=== PATIENT | male | born 1960 | race African-American/Black ===

== ENCOUNTER 2017-05-12 17:54 | Emergency (ER) | payer BC, SELFPAY ==
[2017-05-12 18:11] VITALS: BP 163/82; PULSE 83; RESP 16; TEMP 36.9; O2SAT 98; BMI 33.6
[2017-05-12 18:12] LABS: UTC Influenza A Antigen Negative (Negative); UTC Influenza B Antigen Positive (Negative)
--- NOTE | 2017-05-12 18:20 | HMH.EDUTC ---
[facility] [place] Dis[place] Clinical Impression: Influenza Disposition: Home, Self-Care Condition on Discharge: Good Instructions: Influenza, DI for Cough -- Adult Additional Instructions: ? Start Tamiflu today if you are going to take it. Discussed risk and possible benefits. ? Lots of rest ? Increase Fluids water, Gatorade, powerade, pedialyte,if /toddler/child ? Alternate Tylenol and / or ibuprofen as discussed for fever, aches, chills x 24 hours without medication for symptoms ? Follow up IMMEDIATELY for new or worsening Symptoms OR no noticeable improvement over the next 48-72 hours, 911 for difficulty or breathing ? You or your child area contagious until no fever, aches, chills for 24 hours with medication for symptoms Prescriptions: Dextromethorphan Polistirex [Delsym] 10 ml PO Q12H PRN #200 ronal.er.12h PRN Reason: Cough Oseltamivir Phosphate [Tamiflu 75mg Capsule] 75 mg PO BID #10 cap Forms: Work/School Release Time of Disposition: 18:28 Medical Decision Making - Medical Records Medical records reviewed: Yes: I reviewed the patient's medical records. Vital Signs: 05/12/17 18:11 Temperature 98.5 F Temperature Source Temporal Artery Scan Pulse Rate [Right] 83 Respiratory Rate 16 Blood Pressure [Right Arm] 163/82 Blood Pressure Mean [Right Arm] 109 Blood Pressure Source [Right Arm] Automatic Cuff Blood Pressure Position [Right Arm] Sitting 02 Sat by Pulse Oximetry 98 Oxygen Delivery Method Room Air - Lab Data Lab Results 05/12/17 17:57: Influenza Type A Ag Negative, Influenza Type B Ag Positive A - Emeka Inquiry Pt receiving controlled substance: No Emeka was queried for this patient: No [facility] HPI - General Stated complaint: Fever, Congestion, Body Aches Mode of Arrival: Ambulatory Source of Information: Patient Limitations: No Limitations Description of Symptoms (Recalled from Triage Doc. 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 History I have reviewed the patient's past medical history: Yes - *Social History Alcohol Intake: never - Psychiatric History Expresses thoughts of harming self/others: None Suicide Plan Description: No Plan ROS Obtained: Yes All systems reviewed & no additional complaints - Constitutional Constitutional: Reports body ache, Reports chills, Reports fever(s) - ENT Ears, Nose, Mouth, and Throat: Reports sinus pain, Reports sore throat Physical Exam - General General appearance: alert, in no apparent distress - Respiratory Respiratory exam: Present: normal lung sounds bilaterally. Absent: respiratory distress - Cardiovascular Cardiovascular exam: Present: regular rate, normal rhythm. Absent: JVD - Neurological Exam Neurological exam: Present: alert, oriented X3
--- NOTE | 2017-05-12 18:26 | ED_ITS ---
[facility] [place]: Influenza Disposition: Home, Self-Care Condition on Discharge: Good Instructions: Influenza, DI for Cough -- Adult Additional Instructions: ? Start Tamiflu today if you are going to take it. Discussed risk and possible benefits. ? Lots of rest ? Increase Fluids water, Gatorade, powerade, pedialyte,if /toddler/child ? Alternate Tylenol and / or ibuprofen as discussed for fever, aches, chills x 24 hours without medication for symptoms ? Follow up IMMEDIATELY for new or worsening Symptoms OR no noticeable improvement over the next 48-72 hours, 911 for difficulty or breathing ? You or your child area contagious until no fever, aches, chills for 24 hours with medication for symptoms Prescriptions: Dextromethorphan Polistirex [Delsym] 10 ml PO Q12H PRN #200 ronal.er.12h PRN Reason: Cough Oseltamivir Phosphate [Tamiflu 75mg Capsule] 75 mg PO BID #10 cap Forms: Work/School Release Time of Disposition: 18:28 Medical Decision Making - Medical Records Medical records reviewed: Yes: I reviewed the patient's medical records. Vital Signs: 05/12/17 18:11 Temperature 98.5 F Temperature Source Temporal Artery Scan Pulse Rate [Right] 83 Respiratory Rate 16 Blood Pressure [Right Arm] 163/82 Blood Pressure Mean [Right Arm] 109 Blood Pressure Source [Right Arm] Automatic Cuff Blood Pressure Position [Right Arm] Sitting 02 Sat by Pulse Oximetry 98 Oxygen Delivery Method Room Air - Lab Data Lab Results 05/12/17 17:57: Influenza Type A Ag Negative, Influenza Type B Ag Positive A - Emeka Inquiry Pt receiving controlled substance: No Emeka was queried for this patient: No [facility] [place] - General Stated complaint: Fever, Congestion, Body Aches Mode of Arrival: Ambulatory Source of Information: Patient Limitations: No Limitations Description of Symptoms (Recalled from Triage Doc. 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 - Related Data Previous Rx's Medication Instructions Recorded Dextromethorphan Polistirex 10 ml PO Q12H PRN #200 ronal.er.12h 05/12/17 [Delsym] Oseltamivir Phosphate [Tamiflu 75 mg PO BID #10 cap 05/12/17 75mg Capsule] Allergies Allergy/AdvReac Type Severity Reaction Status Date / Time No Known Allergies Allergy Verified 05/12/17 18:15 - Worker's Comp Is this a Worker's Comp case?: No [facility] History I have reviewed the patient's past medical history: Yes - *Social History Alcohol Intake: never - Psychiatric History Expresses thoughts of harming self/others: None Suicide Plan Description: No Plan ROS Obtained: Yes All systems reviewed & no additional complaints - Constitutional Constitutional: Rep
== END 2017-05-12 18:41 | disposition home or self-care (01) ==
PROVIDERS: Emergency Provider Nurse Practitioner
DX: J11.1 Influenza due to unidentified influenza virus with other respiratory manifestations (principal)
CPT/HCPCS: 87804; 99201

== ENCOUNTER 2021-01-03 12:22 | Emergency (ER) | payer BC, SELFPAY ==
[2021-01-03 12:30] VITALS: BP 183/100; PULSE 66; RESP 16; TEMP 36.8; O2SAT 99; BMI 34.2
--- NOTE | 2021-01-03 13:17 | HMH.EDUTC ---
[facility] [place] Clinical Impression: Low back pain Qualifiers: Chronicity: unspecified Back pain laterality: right Sciatica presence: with sciatica Sciatica laterality: sciatica of right side Qualified Code(s): M54.41 - Lumbago with sciatica, right side Disposition: Home, Self-Care Condition on Discharge: Good Instructions: DI for Sciatica, DI for Back Pain With Sciatica, Cyclobenzaprine, Etodolac Additional Instructions: *Etodolac kym 8 hours with meal as needed for pain/inflammation *Remember you had a Toradol shot in the clinic today, which is similar to Etodolac so do not start this mediacaiton until at least 10pm tonight *Not additional anti-inflammatory like Ibuprofen motrin, aleve, advil with the above amount of Etodolac. You can still take Tylenol every 4 hours as needed if you need something else for pain *Ice 20 minutes every 2 hours for the first 48 hours after the initial injury followed by moist heat every 20 minutes 3-4 times a day to affected area *Muscle relaxer every 8 hours as needed for muscle spasms but remember, it WILL cause drowsiness You cannot take it and drive, operate machinery or care for small children. *Keep this area active, no movement leads to more stiffness, However take it easy and avoid heavy lifting pushing or pulling *Follow up with you family doctor if no improvement for further treatment Make sure to watch your blood pressure and follow up with your Family Doctor for further treatment and evaluation Prescriptions: Etodolac 200 mg PO Q8HP PRN #20 cap PRN Reason: Moderate Pain Transmission Status: Pending to [id number] Cyclobenzaprine HCl [Flexeril 10mg tablet] 10 mg PO TID PRN #30 tab PRN Reason: Muscle Spasm Transmission Status: Pending to [facility] Referrals: Provider,Referral, [Primary Care Provider] - As needed Time of Disposition: 13:49 Medical Decision Making - Emeka Inquiry Pt receiving controlled substance: No Emeka was queried for this patient: No Vital Signs: 01/03/21 12:30 Temperature 98.3 F Temperature Source Oral Pulse Rate [Right Radial] 66 Respiratory Rate 16 Blood Pressure [Right Arm] 183/100 H Blood Pressure Mean [Right Arm] 127 Blood Pressure Source [Right Arm] Automatic Cuff Blood Pressure Position [Right Arm] Sitting 02 Sat by Pulse Oximetry 99 Oxygen Delivery Method Room Air Orders (Tests/Meds): ED MEDICATIONS Discontinued Medications Generic Name Dose Route Start Last Admin Trade Name Shravan PRN Reason Stop Dose Admin Ketorolac Tromethamine 60 mg 01/03/21 13:26 01/03/21 13:35 Ketorolac 60mg/2ml Vial IM 01/03/21 13:27 60 mg ONCE ONE Administration Methylprednisolone Sodium Succinate 125 mg 01/03/21 13:26 01/03/21 13:35 Methylprednisolone Sod Succ 125mg Vial IM 01/03/21 13:27 125 mg ONCE ONE Administration Medical Decision Narrative: Discussed with patient and recommended xray and patient declined States that feels like he pulled a muscle and did not want an xray Discussed with patient and recommended transfer to the ED or further lab work due to elevated blood pressure and he declined states that he is hurting and just wants to get checked for his back [facility] [place] - General Stated complaint: lower back pain right side Time Seen by Provider: 01/03/21 13:18 Mode of Arrival: Ambulatory Source of Information: Patient Limitations: No Limitations Description of Symptoms (Recalled from Triage Doc. by RN): pt c/o R sided lower back, no injury. Pt reports pain radiates down his R leg. - History of Present Illness Provider Complaint: Patient states that he was bending over a few weeks back and felt something pull on the right side of his lower back States that he took OTC medication and it got better but for the last couple of days he has been having pain again in his right side/lower back area that feels like spasm that goes into his right buttock area and right upper leg Denies Loss of control
[2021-01-03 13:37] VITALS: BP 183/90; PULSE 66; RESP 19; TEMP 36.8; O2SAT 99; BMI 26.1
[2021-01-03 14:07] VITALS: BP 183/90; PULSE 66; RESP 19; TEMP 36.8; O2SAT 99
== END 2021-01-03 14:07 | disposition home or self-care (01) ==
LOC: ER 12:33 → UTC 12:33
PROVIDERS: Emergency Provider Nurse Practitioner
DX: M54.41 Lumbago with sciatica, right side (principal)
CPT/HCPCS: 96372; 99202; G0463

== ENCOUNTER 2021-10-20 13:10 | Emergency (ER) | payer BC, SELFPAY ==
[2021-10-20] VITALS (12 sets, daily range): BP systolic 187–219; BP diastolic 96–130; PULSE 59–74; RESP 18; TEMP 37; O2SAT 95–100; BMI 30.2
--- NOTE | 2021-10-20 13:41 | CT_ITS ---
FINAL REPORT CLINICAL HISTORY: right sided weakness, pt states that the symptoms began yesterday FINDINGS: Axial images of the head were obtained without contrast. Coronal reformatted images were also obtained.This study was performed with techniques to keep radiation doses as low as reasonably achievable (ALARA). Individualized dose reduction techniques using automated exposure control or adjustment of mA and/or kV according to the patient's size were employed. There is no evidence of intracranial hemorrhage or mass. The ventricular size is within normal limits. There is no evidence of shift of the midline structures. No abnormal extra axial fluid collection is identified. No skull abnormality is seen on the bone window images. IMPRESSION: No acute intracranial abnormality. Reviewed, Interpreted and Dictated by Gatito Srivastava III, MD Transcribed by Sandip Ocampo Authenticated and [facility]
--- NOTE | 2021-10-20 13:53 | PC.NURSE ---
notified rad pt is ready for CT
[2021-10-20 13:55] LABS: POC Glucose,Bedside 155 (70-110)
--- NOTE | 2021-10-20 13:58 | HMH.EDGENADL ---
ED Disposition Clinical Impression: Cerebrovascular accident Qualifiers: CVA mechanism: unspecified Qualified Code(s): I63.9 - Cerebral infarction, unspecified Disposition: Xfer Short-Term Hosp Condition on Discharge: Fair Referrals: Provider,Referral, [Primary Care Provider] - - Critical Care Critical Care Time: No Attestation: On 10/20/21, the high probability of a clinically significant, sudden or life threatening deterioration of the following system(s) required my full and direct attention, intervention and personal management. The time I documented below is in addition to time spent performing reported procedures but includes the following listed in this critical care notation. Medical Decision Making - Emeka Inquiry Pt receiving controlled substance: No Vital Signs: 10/20/21 13:31 10/20/21 13:43 10/20/21 14:05 Temperature 98.6 F Temperature Source Oral Pulse Rate 70 64 Pulse Rate [Left Radial] 70 Respiratory Rate 18 Blood Pressure 187/96 H 206/103 H Blood Pressure [Right Arm] 187/96 H Blood Pressure Mean 114 131 Blood Pressure Mean [Right Arm] 126 02 Sat by Pulse Oximetry 100 100 95 Oxygen Delivery Method Room Air 10/20/21 14:07 10/20/21 14:19 10/20/21 14:31 Temperature Temperature Source Pulse Rate 65 63 67 Pulse Rate [Left Radial] Respiratory Rate Blood Pressure 209/105 H 190/101 H 201/108 H Blood Pressure [Right Arm] Blood Pressure Mean 139 130 137 Blood Pressure Mean [Right Arm] 02 Sat by Pulse Oximetry 97 97 97 Oxygen Delivery Method 10/20/21 15:01 10/20/21 15:31 10/20/21 16:01 Temperature Temperature Source Pulse Rate 67 59 L 74 Pulse Rate [Left Radial] Respiratory Rate Blood Pressure 202/104 H 200/104 H 219/130 H Blood Pressure [Right Arm] Blood Pressure Mean 135 136 156 Blood Pressure Mean [Right Arm] 02 Sat by Pulse Oximetry 97 96 97 Oxygen Delivery Method 10/20/21 16:23 10/20/21 16:31 Temperature Temperature Source Pulse Rate 59 L 60 Pulse Rate [Left Radial] Respiratory Rate Blood Pressure 212/101 H 207/108 H Blood Pressure [Right Arm] Blood Pressure Mean 156 141 Blood Pressure Mean [Right Arm] 02 Sat by Pulse Oximetry 98 97 Oxygen Delivery Method - Lab Data Lab Results 10/20/21 13:49: POC Glucose 155 H 10/20/21 13:50: WBC 6.2, RBC 4.15 L, Hgb 12.9 L, Hct 42.2, MCV 101.7 H, MCH 31.0, MCHC 30.5 L, RDW 12.8, Plt Count 306, MPV 7.6, Neut % (Auto) 52.3, Lymph % (Auto) 39.0, [place] % (Auto) 4.1, Eos % (Auto) 3.2, Baso % (Auto) 1.4, Neut # (Auto) 3.2, Lymph # (Auto) 2.4, [place] # (Auto) 0.3, Eos # (Auto) 0.2, Baso # (Auto) 0.1 10/20/21 13:50: Sodium 139, Potassium 3.6, Chloride 105, Carbon Dioxide 28, Anion Gap 9.6, BUN 11, Creatinine 0.90, Estimated Creat Clear 134, Estimated GFR 86, Est GFR ( Amer) 105, Glucose 170 H, Calcium 9.0, Total Bilirubin 0.7, AST 33, ALT 28, Alkaline Phosphatase 76, Total Protein 7.1, Albumin 4.3, Globulin 2.8, Albumin/Globulin Ratio 1.5 10/20/21 14:56: SARS-CoV-2 (PCR) Not detected, Influenza A Untype (PCR) Not detected, Influenza Type B (PCR) Not detected Result diagrams: 10/20/21 13:50 10/20/21 13:50 Orders (Tests/Meds): ED MEDICATIONS Generic Name Dose Route Start Last Admin Trade Name Freq PRN Reason Stop Dose Admin Atorvastatin Calcium 40 mg 10/20/21 14:46 10/20/21 15:13 Atorvastatin 40mg Tablet PO 11/19/21 14:45 40 mg HS ANGEL Administration Lisinopril 10 mg 10/20/21 14:57 10/20/21 15:12 Lisinopril 10mg Tablet PO 11/19/21 14:56 10 mg DAILY ANGEL Administration Sodium Chloride 10 ml 10/20/21 13:42 Sodium Chloride 0.9% 10ml Flush Syringe IV 11/19/21 13:41 NEEDED PRN Maintain IV Site Discontinued Medications Generic Name Dose Route Start Last Admin Trade Name Freq PRN Reason Stop Dose Admin Aspirin 324 mg 10/20/21 14:46 10/20/21 15:12 Aspirin 81mg Chewable Tablet PO 10/20/21 14:47 324 mg
[2021-10-20 14:02] LABS: Basophils # 0.1 K/mm3 (0-0.2); Basophils % 1.4 % (0.1-2.0); Eosinophils # 0.2 K/mm3 (0.0-0.4); Eosinophils % 3.2 % (0.1-12.0); Hematocrit 42.2 % (42.0-52.0); Hemoglobin 12.9 g/dL (14.1-18.0); Lymphocytes # 2.4 K/mm3 (0.7-4.5); Mean Corpuscular HGB Conc 30.5 g/dL (31.8-35.4); Mean Corpuscular Volume 101.7 fl (80-94); Mean Platelet Volume 7.6 fl (7.4-10.4); Monocytes # 0.3 K/mm3 (0.1-1.0); Monocytes % 4.1 % (1.7-9.3); Neutrophils # 3.2 K/mm3 (1.8-7.8); Neutrophils % 52.3 % (37.0-80.0); Platelet Count 306 K/mm3 (142-424); Red Blood Count 4.15 M/mm3 (4.60-6.20); Red Cell Distribution Width 12.8 % (11.5-17.5); White Blood Count 6.2 K/mm3 (4.8-10.8)
--- NOTE | 2021-10-20 14:08 | PC.NURSE ---
JAYDEN LOUIE at
[2021-10-20 14:11] LABS: Chloride 105 mmol/L (98-107); Potassium 3.6 mmoL/L (3.5-5.1); Sodium 139 mmol/L (136-145)
[2021-10-20 14:13] LABS: Blood Urea Nitrogen 11 mg/dl (9-20); Creatinine Clearance Estimated 134 mL/min (50-200); Estimated Glomerular Filt Rate 86 ml/min (>60); GFR (African American) 105 ML/MIN (>60)
[2021-10-20 14:14] LABS: Alanine Aminotransferase 28 U/L (12-78); Albumin Level 4.3 g/dl (3.5-5.0); Albumin/Globulin Ratio 1.5 (1.1-1.8); Alkaline Phosphatase 76 U/L (38-126); Anion Gap 9.6 mEq/L (5-15); Aspartate Amino Transferase 33 U/L (17-59); Bilirubin,Total 0.7 mg/dl (0.2-1.3); Carbon Dioxide 28 mmol/L (22.0-30.0); Globulin 2.8 g/dL (1.3-3.2); Glucose 170 mg/dl (74-100); Total Protein,Serum 7.1 g/dl (6.3-8.2)
--- NOTE | 2021-10-20 14:19 | PC.NURSE ---
Rounded on patient; friend at [facility]. He has no needs at this time. Aware that we are waiting on radiology results.
--- NOTE | 2021-10-20 14:19 | PC.NURSE ---
calling [facility]
--- NOTE | 2021-10-20 14:34 | PC.NURSE ---
speaking to dr hickey at [facility]
[2021-10-20 14:59] LABS: Coronavirus 19, PCR Not Detected (NotDetected); Influenza A, PCR Not Detected (NotDetected); Influenza B, PCR Not Detected (NotDetected)
--- NOTE | 2021-10-20 15:03 | PC.NURSE ---
JAYDEN LOUIE speaking with Dr. Wellington, Neurologist with [facility] at this time
--- NOTE | 2021-10-20 15:07 | CT_ITS ---
FINAL REPORT TECHNIQUE: Thin section axial CT with IV contrast supplemented with multiplanar reconstruction under CT angiogram protocol. This study was performed with techniques to keep radiation doses as low as reasonably achievable (ALARA). Individualized dose reduction techniques using automated exposure control or adjustment of mA and/or kV according to the patient's size were employed. NASCET criteria was utilized during interpretation. CLINICAL HISTORY: cva FINDINGS: Aortic arch: Arch shows no significant narrowing. Great vessel origins are widely patent. Right carotid: No significant stenosis is seen of the cervical common or internal carotid artery. Left carotid: No significant stenosis is seen of the cervical common or internal carotid artery. Vertebral: The vertebral arteries are code dominant and somewhat hypoplastic. No significant stenosis is present. IMPRESSION: No significant stenosis. Reviewed, Interpreted and Dictated by Gatito Srivastava III, MD Transcribed by Tory Ward Authenticated and [facility]
--- NOTE | 2021-10-20 15:07 | CT_ITS ---
FINAL REPORT TECHNIQUE: Thin section axial CT with IV contrast supplemented with multiplanar reconstruction under CT angiogram protocol. Multiplanar reconstructions were performed. This study was performed with techniques to keep radiation doses as low as reasonably achievable (ALARA). Individualized dose reduction techniques using automated exposure control or adjustment of mA and/or kV according to the patient''s size were employed. CLINICAL HISTORY: cva FINDINGS: The distal vertebral, basilar and distal internal carotid arteries have an unremarkable appearance. No aneurysm is seen. Major intracranial vessels are patent without significant stenosis. IMPRESSION: No evidence of significant stenosis or major branch occlusion. Reviewed, Interpreted and Dictated by Gatito Srivastava III, MD Transcribed by Toyr Ward Authenticated and . [facility]
--- NOTE | 2021-10-20 15:09 | PC.NURSE ---
Notified radiology of scans that were added on; spoke with Gladys
--- NOTE | 2021-10-20 15:46 | PC.NURSE ---
per ER MD will wait on results of CT head/neck before calling [facility] back, [facility] states [facility] will likely accept pt but they need to make sure that pt does not have a LVO cva because they do not have an interventional radiologist there.
--- NOTE | 2021-10-20 15:54 | PC.NURSE ---
rounded on pt at this time, pt resting in bed. Pt states no needs at this time. Pt updated on POC-waiting on CTA scan results and then we will back contact again with [facility]. Pt verbalized understanding.
--- NOTE | 2021-10-20 16:24 | PC.NURSE ---
notified of pts BP
--- NOTE | 2021-10-20 17:21 | PC.NURSE ---
Contacted [facility] to have Neurologist paged for JAYDEN LOUIE
--- NOTE | 2021-10-20 17:26 | ECG_ITS ---
APPROVED REPORT Exam: Resting ECG HR:52 bpm ECG Measurements Heart Rate 52 AXES HI 162 P 64 QRSd 93 QRS 52 QT 467 T 95 QTc 446 Conclusion SINUS BRADYCARDIA WITH SINUS ARRHYTHMIA NONSPECIFIC T-WAVE ABNORMALITY BORDERLINE ECG UNCONFIRMED REPORT Electronically signed by : Harvey Montaño MD 10/21/2021 17:41:13
--- NOTE | 2021-10-20 17:48 | PC.NURSE ---
Dr. Ramirez speaking with Neurologist at [facility] again regarding other scan results
--- NOTE | 2021-10-20 17:52 | PC.NURSE ---
updated pt on POC
--- NOTE | 2021-10-20 18:51 | PC.NURSE ---
still awaiting call from [facility] for bed assignment. pt updated
--- NOTE | 2021-10-20 21:12 | PC.NURSE ---
Called report to Misty BURLESON @ [facility] on [facility]. Will give bed # at registration.
== END 2021-10-20 21:37 | disposition short-term general hospital (02) ==
PROVIDERS: Emergency Provider Emergency Medicine
DX: I63.9 Cerebral infarction, unspecified (principal); F17.210 Nicotine dependence, cigarettes, uncomplicated; H53.2 Diplopia; R53.1 Weakness; R26.81 Unsteadiness on feet
CPT/HCPCS: 70450; 70496; 70498; 80053; 82962; 85025; 93005; 99285; C9803; Q9967; U0003; U0005

== ENCOUNTER 2022-04-27 08:54 | Outpatient (RCR) | payer OTHER, SELFPAY ==
--- NOTE | 2022-04-27 09:52 | HMH.PTOPEV ---
PT Outpatient Evaluation Rehab PT Outpatient Evaluation Start: 04/27/22 09:37 Freq: Status: Active Protocol: Document 04/27/22 09:38 TAPAN (Rec: 04/27/22 09:52 ANISHASENDY [id number]) E-signed By Wilfredo Downey, PT Outpatient Therapy Subjective History Subjective History Pt presents s/p CVA w/right hemiplegia, date of CVA 10/20/21 . Pt reports rehab following CVA at [facility], but only rehabbing at home independently since rehab stay . Pt reports progressing with RUE and RLE strength and function until , then 'my right hip and thigh started hurting, getting, tight, and giving out at times .' Pt reports anterior and lateral aspect right hip pain, and intermittent buckling. Chief Complaint Pain,Spasms,Stiff,Gives out/ Unstable,Paresthesia,Weakness, Decreased Coordination Symptom Type Ache,Sharp,Dull,Stabbing Symptoms Relieved By Rest/Positioning,Prescription Meds,Activity Symptoms Aggravated By Standing,Physical Activity, Walking Prior Functional Limitations Housework,Standing,Squatting, Walking,Stairs,Balance Current Functional Limitations Housework,Standing,Squatting, Walking,Stairs,Balance Symptom Description Constant but Variable Level of pain today (0-10) 5 Pain scale - at its best (0-10) 4 Pain scale - at its worst (0-10) 10 Hip/Knee Eval Gait Observation General Gait Pattern Observation Ataxic Gait Assistive Device Assistive Devices Straight Cane Palpation Tenderness right Knee Palpation Overall Comment 2-3/4 anterior and lateral hip mm/jt MMT Hip Flexion Strength Grade 4 Good Hip Abduction Strength Grade 3+ Fair+ Hip Adduction Strength Grade 4- Good- Hip Extension Strength Grade 3- Fair- Knee Extension Strength Grade 4- Good- Knee Flexion Strength Grade 5 Normal ROM Hip Flexion w/Knee Flexed Passive Range 0-90 of Motion (degrees) Hip Flexion w/Knee Extended Passive 0-60 Range of Motion (degrees) Hip Extension Passive Range of Motion ( 0-15 degrees) Hip ROM Limitations Muscle Tone Knee Flexion Active Range of Motion ( 8-125 degrees) Knee ROM
== END 2022-04-27 08:55 | disposition home or self-care (01) ==
LOC: PT 08:54
PROVIDERS: Visit Provider Family Medicine
DX: G81.91 Hemiplegia, unspecified affecting right dominant side (principal); M79.604 Pain in right leg
CPT/HCPCS: 97163

== ENCOUNTER 2022-06-27 12:50 | Outpatient (RCR) | payer OTHER, SELFPAY | END 2022-06-27 12:55 | disposition home or self-care (01) | LOC: OT 12:50 | PROVIDERS: Visit Provider Family Medicine | DX: G81.91 Hemiplegia, unspecified affecting right dominant side (principal) | CPT/HCPCS: 97165 ==

== ENCOUNTER 2022-08-11 14:00 | Outpatient (RCR) | payer OTHER, SELFPAY ==
--- NOTE | 2022-07-05 15:41 | HMH.PTOPEV ---
PT Outpatient Evaluation Rehab PT Outpatient Evaluation Start: 07/05/22 15:27 Freq: Status: Active Protocol: Document 07/05/22 15:27 TAPAN (Rec: 07/05/22 15:41 TAPAN [id number]) E-signed By Wilfredo Downey, PT Outpatient Therapy Subjective History Subjective History Pt presents s/p CVA w/right hemiplegia, date of CVA 10/20/21 . Pt reports rehab following CVA at [facility], but only rehabbing at home independently since rehab stay . Pt reports progressing with RUE and RLE strength and function until , then 'my right hip and thigh started hurting, getting, tight, and giving out at times .' Pt reports anterior and lateral aspect right hip pain, and intermittent buckling. Pt also reports increased stiffness and pain in right thigh over last couple weeks, 'it's getting worse instead of better.' Pt reports this recent change in function has precipitated a change from [place] to large base [place] for improved stability w/gait. Chief Complaint Pain,Spasms,Stiff,Paresthesia, Weakness Symptom Type Ache,Sharp,Dull Symptoms Relieved By Nothing Symptoms Aggravated By Standing,Physical Activity, Walking Prior Functional Limitations Housework,Standing,Walking Current Functional Limitations Housework,Standing,Walking Symptom Description Constant but Variable Level of pain today (0-10) 5 Pain scale - at its best (0-10) 5 Pain scale - at its worst (0-10) 10 Hip/Knee Eval Gait Observation General Gait Pattern Observation Antalgic Gait,Ataxic Gait, Decrease Weight Bear (R) Palpation Tenderness right Knee Palpation Overall Comment 2-3/4 RF MM, QUAD MM Hip Palpation Findings Tenderness MMT Hip Flexion Strength Grade 4- Good- Hip Abduction Strength Grade 4- Good- Hip Adduction Strength Grade 4 Good Hip Extension Strength Grade 4 Good Knee Extension Strength Grade 4 Good Knee Flexion Strength Grade 4 Good Knee Extensors Muscle Tone Description Moderate Hypertonicity Knee Flexors Muscle Tone Description Moderate Hypertonicity Hip Exte
--- NOTE | 2022-08-08 14:58 | HMH.RHREAS ---
Rehab Reassessment Rehab OP Re-assessment Start: 08/08/22 14:39 Freq: Status: Active Protocol: Document 08/08/22 14:41 ANISHASENDY (Rec: 08/08/22 14:58 NORAMANISHSENDY [id number]) E-signed By Wilfredo Downey, PT Rehab Re-assessment Subjective Subjective Pt reports improved right LE pain at 5-7/10 on VAS, and feels 'stronger since I've started therapy.' Objective Objective Notes MMT: RIGHT HIP FLX 5/5, R KNEE EXT 4+/5, R KNEE FLX 5/5, R ANKLE DF 5/5, R HIP ABD 4/5, R HIP ADD 5/5, R HIP EXT 4+/5 TTP: R QUAD/RF 0/4 AROM: R KNEE FLX 20-135 PROM: R KNEE FLX 15-135. R HIP ER 0-20, R HIP IR 0-25 TINETTI:21 Assessment Progress Assessment Progressing as Expected Assessment Notes IMPROVED GAIT/BALANCE, STRENGTH, TTP, AND ROM Patient goals met STG'S 09/24 LTG'S 05/27 Goals Not Met STG'S 07/25, LTG'S 11/24 Plan Plan Pt to continue w/skilled P.T. to make further improvements in ROM, balance, gait, and strength to allow for optimal function Frequency of Therapy 1-2x/wk Duration of therapy 6-8 wks Time and Billing Re-Eval Time 11 Re-Eval Billing Units 1 PHYSICIAN CERTIFICATION: I certify the specified therapy services for Bandar Jimenesrr are required, authorized, and reviewed every 30 days.
--- NOTE | 2022-08-09 10:02 | HMH.RHREAS ---
Rehab Reassessment Rehab OP Re-assessment Start: 08/08/22 14:39 Freq: Status: Active Protocol: Document 08/08/22 14:41 ANISHASENDY (Rec: 08/08/22 14:58 NORAMANISHSENDY [id number]) E-signed By Wilfredo Downey, PT Rehab Re-assessment Subjective Subjective Pt reports improved right LE pain at 5-7/10 on VAS, and feels 'stronger since I've started therapy.' Objective Objective Notes MMT: RIGHT HIP FLX 5/5, R KNEE EXT 4+/5, R KNEE FLX 5/5, R ANKLE DF 5/5, R HIP ABD 4/5, R HIP ADD 5/5, R HIP EXT 4+/5 TTP: R QUAD/RF 0/4 AROM: R KNEE FLX 20-135 PROM: R KNEE FLX 15-135. R HIP ER 0-20, R HIP IR 0-25 TINETTI:21 Assessment Progress Assessment Progressing as Expected Assessment Notes IMPROVED GAIT/BALANCE, STRENGTH, TTP, AND ROM Patient goals met STG'S 09/24 LTG'S 05/27 Goals Not Met STG'S 07/25, LTG'S 11/24 Plan Plan Pt to continue w/skilled P.T. to make further improvements in ROM, balance, gait, and strength to allow for optimal function Frequency of Therapy 1-2x/wk Duration of therapy 6-8 wks Time and Billing Re-Eval Time 11 Re-Eval Billing Units 1 PHYSICIAN CERTIFICATION: I certify the specified therapy services for Bandar Jimenesrr are required, authorized, and reviewed every 30 days.
== END 2022-08-11 14:05 | disposition home or self-care (01) ==
LOC: PT 14:00
PROVIDERS: Visit Provider Family Medicine
DX: G81.91 Hemiplegia, unspecified affecting right dominant side (principal); M25.551 Pain in right hip; M79.604 Pain in right leg
CPT/HCPCS: 97110; 97112; 97116; 97140; 97163; 97164; 97530

== ENCOUNTER 2023-10-17 06:23 | Outpatient (CLI) | payer OTHER, SELFPAY ==
--- NOTE | 2023-10-17 | CT_ITS ---
FINAL REPORT TECHNIQUE: Axial CT images of the chest were obtained without contrast. Low-dose protocol was utilized. This study was performed with techniques to keep radiation doses as low as reasonably achievable (ALARA). Individualized dose reduction techniques using automated exposure control or adjustment of mA and/or kV according to the patient's size were employed. CLINICAL HISTORY: LUNG SCREEENING..SMOKER FOR 40 YEARS 2 PACKS PER DAY COMPARISON: None FINDINGS: CT CHEST WITHOUT, LOW DOSE SCREENING CT Di Vol: 2.90 mGy DLP: 102.64 mGy*cm There is no axillary, mediastinal, or hilar adenopathy. The heart size is normal. There are severe coronary artery calcifications. There is no pleural or pericardial effusion. The lung windows show no suspicious mass or nodule. Calcified granulomas are noted in the right lower lobe. Limited images of the upper abdomen demonstrate a probable cyst in the left hepatic lobe measuring 4.9 cm. IMPRESSION: LR Category 1S: 12 month follow-up low-dose chest CT is recommended. Modifier as: Severe coronary artery calcifications. Reviewed, Interpreted and Dictated by Gatito Srivastava III, MD Transcribed by Helena Dumont Authenticated and . [facility]
== END 2023-10-17 23:59 | disposition home or self-care (01) ==
LOC: RAD 06:24
PROVIDERS: PCP Family Medicine; Visit Provider Family Medicine
DX: Z72.0 Tobacco use (principal)
CPT/HCPCS: 71271

== ENCOUNTER 2023-11-27 09:55 | Outpatient (CLI) | payer OTHER, SELFPAY ==
--- OUTSIDE RECORDS SUMMARY | 2023-11-27 10:00 | XMS_ITS | Summary of Care ---
Author Organization [facility] Address [address] [place] [address]- Encounter 10/29/21 - 11/11/21 [facility] [address] [place] [address] Encounter Diagnosis CVA(Discharge Diagnosis) - 10/29/21 Discharge Disposition: Discharged to Home or Self Care Attending Physician: Brian Lino DO Admitting Physician: Brian Lino DO Allergies, Adverse Reactions, Alerts No Known Medication Allergies Assessment and Plan Extracted from: Title:Discharge Summary Phys [facility] Author:Brian Lino DO Date:11/11/21 Discharge Plan Discharge Summary Plan Discharge Medication Post Reconcillation (ST) Home Medications (10) Active aspirin 81 mg oral tablet, chewable 81 mg = 1 tab, Oral, Daily Coreg 12.5 mg oral tablet 12.5 mg = 1 tab, Oral, BIDmeals hydrALAZINE 10 mg oral tablet 10 mg = 1 tab, Oral, TID Lexapro 10 mg oral tablet 10 mg = 1 tab, Oral, Daily Lipitor 40 mg oral tablet 40 mg = 1 tab, Oral, QHS losartan 50 mg oral tablet 50 mg = 1 tab, Oral, BID Neurontin 300 mg oral capsule 300 mg = 1 cap, Oral, q8hr NIFEdipine 60 mg oral tablet, extended release 120 mg = 2 tab, Oral, Daily Plavix 75 mg oral tablet 75 mg = 1 tab, Oral, Daily Protonix 20 mg oral delayed release tablet 20 mg = 1 tab, Oral, Daily . Discharge Diet: Diet -- 10/29/21 13:25:00 EDT, Texture: Level 7 - Regular, Liquid Consistency: Level 0 - Thin, Restrictions: Heart Healthy (2g Na) Disposition: See discharge plan Services: See discharge plan Follow-up appointments: Follow-up PCP in 1 to 2 weeks; see depart paperwork for additional specialty physician follow-up Time Spent on Discharge: _45 minutes Please note that portions of this note have been completed with a voice recognition program. Efforts were made to edit the dictations, but occasionally words are missed transcribed and may demonstrate nonsensical language or typographical errors. Medications aspirin 81 mg oral tablet, chewable 81 mg, = 1 tab, Indication: Cerebrovascular accident Tab-Chew, Oral, Daily, 30 tab, 0 Refill(s), Route to Pharmacy Electronically, [facility], [facility], 10/29/21 15:27:00 EDT, Height/Length Dosing, cm, 104.3, 10/29/21 15:27:00 EDT, Weigh... Start Date: 11/08/21 Stop Date: 12/08/21 Status: Ordered Coreg 12.5 mg oral tablet 12.5 mg = 1 tab, Tab, Oral, BIDmeals, 60 tab, 0 Refill(s), Route to Pharmacy Electronically, [facility], [address], 10/29/21 15:27:00 EDT, Height/Length Dosing, cm, 104.3, 10/29/21 15:27:00 EDT, Weight Dosing, kg Start Date: 11/08/21 Stop Date: 12/08/21 Status: Ordered hydrALAZINE 10 mg = 1 tab, Tab, Oral, Start date 11/11/21 9:00:00 EDT, 11/05/21 14:00:00 EDT Start Date: 11/11/21 Stop Date: 11/11/21 Status: Completed hydrALAZINE 10 mg oral tablet 10 mg = 1 tab, Tab, Oral, TID, 90 tab, 0 Refill(s), Route to Pharmacy Electronically, [facility], [address], 10/29/21 15:27:00 EDT, Height/Length Dosing, cm, 104.3, 10/29/21 15:27:00 EDT, Weight Dosing, kg Start Date: 11/08/21 Stop Date: 12/08/21 Status: Ordered Lexapro 10 mg oral tablet 10 mg = 1 tab, Tab, Oral, Daily, 30 tab, 0 Refill(s), Route to Pharmacy Electronically, [facility], [address], 10/29/21 15:27:00 EDT, Height/Length Dosing, cm, 104.3, 10/29/21 15:27:00 EDT, Weight Dosing, kg Start Date: 11/08/21 Stop Date: 12/08/21 Status: Ordered Lipitor 40 mg oral tablet 40 mg = 1 tab, Tab, Oral, QHS, 30 tab, 0 Refill(s), Route to Pharmacy Electronically, [facility], [address], 10/29/21 15:27:00 EDT, Height/Length Dosing, cm, 104.3, 10/29/21 15:27:00 EDT, Weight Dosing, kg Start Date: 11/08/21 Stop Date: 12/08/21 Status: Ordered losartan 50 mg oral tablet 50 mg = 1 tab, Tab, Oral, BID, 60 tab, 0 Refill(s), Route to Pharmacy Electronically, [facility], [address], 10/29/21 15:27:00 EDT, Height/Length Dosing, cm, 104.3, 10/29/21 15:27:00 EDT, Weight Dosing, kg Start Date: 11/08/21 Stop Date: 12/08/21 Status: Ordered Neurontin 300 mg oral capsule 300 mg, = 1 cap, Indication: Neuopathic Pain - Spinal Cap, Oral, q8hr, 90 cap, 0 Refill(s), Route to Pharmacy Electronically, [facility], [address], 10/29/21 15:27:00 EDT, Height/Length Dosing, cm, 104.3, 10/29/21 15:27:00 EDT, Weight Dos... Start Date: 11/08/21 Stop Date: 12/08/21 Status: Ordered NIFEdipine 60 mg oral tablet, extended release 120 mg, 2 tab, Tab-ER, Oral, Daily, 60 tab, 0 Refill(s), Route to Pharmacy Electronically, [facility], [address], 10/29/21 15:27:00 EDT, Height/Length Dosing, cm, 104.3, 10/29/21 15:27:00 EDT, Weight Dosing, kg Start Date: 11/08/21 Stop Date: 12/08/21 Status: Ordered Plavix 75 mg oral tablet 75 mg, = 1 tab, Indication: Cerebrovascular accident Tab, Oral, Daily, 30 tab, 0 Refill(s), Route to Pharmacy Electronically, [facility], [address], 10/29/21 15:27:00 EDT, Height/Length Dosing, cm, 104.3, 10/29/21 15:27:00 EDT, Weight Dos... Start Date: 11/08/21 Stop Date: 12/08/21 Status: Ordered Protonix 20 mg oral delayed release tablet 20 mg = 1 tab, Tab-DR, Oral, Daily, 30 tab, 0 Refill(s), Route to Pharmacy Electronically, [facility], [address], 10/29/21 15:27:00 EDT, Height/Length Dosing, cm, 104.3, 10/29/21 15:27:00 EDT, Weight Dosing, kg Start Date: 11/08/21 Stop Date: 12/08/21 Status: Ordered Problem List Condition Effective Dates Status Health Status Inform ant Aphasia(Confirmed) Active At risk of venous thromboembolus(Confirmed) 1 10/30/21 Active Cognitive communication disorder(Confirmed) Active Hemiplegia of dominant side(Confirmed) Active Impaired mobility(Confirmed) Active Self-care disability(Confirmed) Active 1Problem added by Discern Expert Rule: EBN_VTERISKPROB_3 Results Laboratory List Name Date Automated Diff [facility] 11/09/21 Basic Metabolic Panel [facility] 11/09/21 Complete Blood Count w/Auto Diff [facility] 10/16 10/06 Automated Diff [facility] 11/05/21 Basic Metabolic Panel [facility] 11/05/21 Complete Blood Count w/Auto Diff [facility] 10/16 06/08 Automated Diff [facility] 11/02/21 Basic Metabolic Panel [facility] 11/02/21 Complete Blood Count w/Auto Diff [facility] 10/15 01/06 Prealbumin [facility] 10/30/21 Most recent to oldest [Reference Range]: 1 2 3 4 Creatinine Level 0.80 mg/dL (11/09/21 6:49 AM) 0.90 mg/dL (11/05/21 10:08 AM) 0.80 mg/dL (11/02/21 6:14 AM) Estimated Creatinine Clearance 115.64 mL/min 1 (11/09/21 6:49 AM) 102.80 mL/min 2 (11/05/21 10:08 AM) 115.64 mL/min 3 (11/02/21 6:14 AM) Corrected WBC HSL [4-12 x10(3)/mcL] 7 x10(3)/mcL (11/09/21 6:49 AM) 8 x10(3)/mcL (11/05/21 10:08 AM) 8 x10(3)/mcL (11/02/21 6:14 AM) WBC HSL [4.4-11.6 10^3/uL] 6.9 10^3/uL (11/09/21 6:49 AM) 7.5 10^3/uL (11/05/21 10:08 AM) 7.8 10^3/uL (11/02/21 6:14 AM) RBC HSL [04.10-05.80 10^3/uL] 03.89 10^3/uL *LOW* (11/09/21 6:49 AM) 03.95 10^3/uL *LOW* (11/05/21 10:08 AM) 03.97 10^3/uL *LOW* (11/02/21 6:14 AM) Hemoglobin HSL [13.4-17.6 g/dL] 13.0 g/dL *LOW* (11/09/21 6:49 AM) 13.3 g/dL *LOW* (11/05/21 10:08 AM) 13.6 g/dL (11/02/21 6:14 AM) Hematocrit HSL [39.9-53.1 %] 36.3 % *LOW* (11/09/21 6:49 AM) 36.4 % *LOW* (11/05/21 10:08 AM) 36.9 % *LOW* (11/02/21 6:14 AM) MCV HSL [79.9-103.5 fL] 93.3 fL (11/09/21 6:49 AM) 92.1 fL (11/05/21 10:08 AM) 92.8 fL (11/02/21 6:14 AM) MCH HSL [25.9-34.1 g/dL] 33.5 g/dL (11/09/21 6:49 AM) 33.6 g/dL (11/05/21 10:08 AM) 34.1 g/dL (11/02/21 6:14 AM) MCHC HSL [31.9-35.4 g/dL] 35.9 g/dL *HI* (11/09/21 6:49 AM) 36.5 g/dL *HI* (11/05/21 10:08 AM) 36.8 g/dL *HI* (11/02/21 6:14 AM) Platelet HSL [149-451 10^3/uL] 342 10^3/uL (11/09/21 6:49 AM) 378 10^3/uL (11/05/21 10:08 AM) 355 10^3/uL (11/02/21 6:14 AM) RDW-CV% HSL [11.5-14.5 %] 12.2 % (11/09/21 6:49 AM) 12.0 % (11/05/21 10:08 AM) 12.2 % (11/02/21 6:14 AM) RDW-SD HSL [35.5-44.0 fL] 40.7 fL (11/09/21 6:49 AM) 40.7 fL (11/09/21 6:49 AM) 39.8 fL (11/05/21 10:08 AM) 39.8 fL (11/05/21 10:08 AM) MPV HSL [8.9-13.1 fL] 7.7 fL *LOW* (11/09/21 6:49 AM) 7.5 fL *LOW* (11/05/21 10:08 AM) 7.6 fL *LOW* (11/02/21 6:14 AM) Neutrophil Auto HSL [39.6-77.4 %] 45.7 % (11/09/21 6:49 AM) 56.7 % (11/05/21 10:08 AM) 45.1 % (11/02/21 6:14 AM) Lymphocyte Auto HSL [17.7-51.9 %] 41.2 % (11/09/21 6:49 AM) 30.9 % (11/05/21 10:08 AM) 42.5 % (11/02/21 6:14 AM) Monocyte Auto HSL [2.9-10.5 %] 9.8 % (11/09/21 6:49 AM) 10.1 % (11/05/21 10:08 AM) 9.4 % (11/02/21 6:14 AM) Eosinophil Auto HSL [0.0-7.1 %] 2.6 % (11/09/21 6:49 AM) 1.3 % (11/05/21 10:08 AM) 2.2 % (11/02/21 6:14 AM) Basophil Auto HSL [0.0-9.1 %] 0.7 % (11/09/21 6:49 AM) 1.0 % (11/05/21 10:08 AM) 0.8 % (11/02/21 6:14 AM) Neutrophil Absolute HSL [1.1-5.4 10^3/uL] 3.2 10^3/uL (11/09/21 6:49 AM) 4.2 10^3/uL (11/05/21 10:08 AM) 3.5 10^3/uL (11/02/21 6:14 AM) Lymphocyte Absolute HSL [0.7-2.8 10^3/uL] 2.8 10^3/uL (11/09/21 6:49 AM) 2.3 10^3/uL (11/05/21 10:08 AM) 3.3 10^3/uL *HI* (11/02/21 6:14 AM) Monocyte Absolute HSL [0.0-1.1 10^3/uL] 0.7 10^3/uL (11/09/21 6:49 AM) 0.8 10^3/uL (11/05/21 10:08 AM) 0.7 10^3/uL (11/02/21 6:14 AM) Eosinophil Absolute HSL [0.0-0.5 10^3/uL] 0.2 10^3/uL (11/09/21 6:49 AM) 0.1 10^3/uL (11/05/21 10:08 AM) 0.2 10^3/uL (11/02/21 6:14 AM) Basophil Absolute HSL [0.00-0.06 10^3/uL] 0.10 10^3/uL *HI* (11/09/21 6:49 AM) 0.10 10^3/uL *HI* (11/05/21 10:08 AM) 0.10 10^3/uL *HI* (11/02/21 6:14 AM) Nucleated RBC HSL 0.0 *NA* (11/09/21 6:49 AM) 0.1 *NA* (11/05/21 10:08 AM) 0.1 *NA* (11/02/21 6:14 AM) Sodium HSL [135.9-146.1 mEq/L] 138.0 mEq/L (11/09/21 6:49 AM) 137.0 mEq/L (11/05/21 10:08 AM) 137.0 mEq/L (11/02/21 6:14 AM) Potassium HSL [3.4-4.6 mEq/L] 4.1 mEq/L (11/09/21 6:49 AM) 4.0 mEq/L (11/05/21 10:08 AM) 4.0 mEq/L (11/02/21 6:14 AM) Chloride HSL [95.9-106.1 mEq/L] 104.0 mEq/L (11/09/21 6:49 AM) 103.0 mEq/L (11/05/21 10:08 AM) 103.0 mEq/L (11/02/21 6:14 AM) Carbon Dioxide HSL [21.9-29.1 mEq/L] 28.0 mEq/L (11/09/21 6:49 AM) 27.0 mEq/L (11/05/21 10:08 AM) 29.0 mEq/L (11/02/21 6:14 AM) Anion Gap HSL [8-16 mmol/L] 10 mmol/L (11/09/21 6:49 AM) 11 mmol/L (11/05/21 10:08 AM) 9 mmol/L (11/02/21 6:14 AM) Glucose HSL [74.9-115.1 mg/dL] 79.0 mg/dL (11/09/21 6:49 AM) 106.0 mg/dL (11/05/21 10:08 AM) 88.0 mg/dL (11/02/21 6:14 AM) BUN HSL [10.9-23.1 mg/dL] 11.0 mg/dL (11/09/21 6:49 AM) 10.0 mg/dL *LOW* (11/05/21 10:08 AM) 13.0 mg/dL (11/02/21 6:14 AM) Creatinine HSL [0.6-1.6 mg/dL] 0.8 mg/dL (11/09/21 6:49 AM) 0.9 mg/dL (11/05/21 10:08 AM) 0.8 mg/dL (11/02/21 6:14 AM) eGFR-AA HSL 80 *NA* (11/09/21 6:49 AM) 75 *NA* (11/05/21 10:08 AM) 78 *NA* (11/02/21 6:14 AM) eGFR-Non AA HSL 95 *NA* (11/09/21 6:49 AM) 90 *NA* (11/05/21 10:08 AM) 92 *NA* (11/02/21 6:14 AM) BUN/Creat Ratio HSL [5-20 ratio] 14 ratio (11/09/21 6:49 AM) 11 ratio (11/05/21 10:08 AM) 16 ratio (11/02/21 6:14 AM) Calcium Total HSL [8.9-11.1 mg/dL] 8.8 mg/dL *LOW* (11/09/21 6:49 AM) 8.8 mg/dL *LOW* (11/05/21 10:08 AM) 8.7 mg/dL *LOW* (11/02/21 6:14 AM) Prealbumin HSL [14.9-36.1 mg/dL] 18.8 mg/dL (10/30/21 6:25 AM) 1Result Comment: Calculated using method: Cockcroft-Gault (default) Calculated using Formula : (140-ageInYears)*IBW/(72*scrInMGperDL) Age: 61 (44052248210.0) Serum Creatinine: 0.80 mg/dL (24576597190.0) Height: 188 cm (35456759653.0) Weight: 104.3 kg (IBW = 82.236 kg) 2Result Comment: Calculated using method: Cockcroft-Gault (default) Calculated using Formula : (140-ageInYears)*IBW/(72*scrInMGperDL) Age: 61 (03542659562.0) Serum Creatinine: 0.90 mg/dL (45491691202.0) Height: 188 cm (43546797575.0) Weight: 104.3 kg (IBW = 82.236 kg) 3Result Comment: Calculated using method: Cockcroft-Gault (default) Calculated using Formula : (140-ageInYears)*IBW/(72*scrInMGperDL) Age: 61 (24897737293.0) Serum Creatinine: 0.80 mg/dL (66485540155.0) Height: 188 cm (16910975344.0) Weight: 104.3 kg (IBW = 82.236 kg) Vital Signs Most recent to oldest [Reference Range]: 1 2 3 Temperature Oral F [96.4-99.1 DegF] 97.8 DegF (11/11/21 6:30 AM) 98.6 DegF (11/10/21 1:10 PM) 98 DegF (11/10/21 7:45 AM) Peripheral Pulse Rate [60-100 bpm] 54 bpm *LOW* (11/11/21 6:30 AM) 63 bpm (11/10/21 1:10 PM) 56 bpm *LOW* (11/10/21 7:45 AM) Respiratory Rate [14-20 br/min] 17 br/min (11/07/21 7:17 AM) 16 br/min (11/06/21 1:09 PM) 16 br/min (11/03/21 7:43 PM) Blood Pressure [90-140/60-90 mmHg] 131/78mmHg (11/11/21 8:28 AM) 131/78mmHg (11/11/21 6:30 AM) 128/83mmHg (11/10/21 1:10 PM) Mean Arterial Pressure, Cuff 98 mmHg (11/10/21 1:10 PM) 96 mmHg (11/09/21 8:46 AM) 93 mmHg (11/08/21 7:18 PM) Temperature Oral 37.0 DegC 1 (11/10/21 1:10 PM) 36.9 DegC 2 (11/09/21 8:46 AM) 36.8 DegC 3 (11/08/21 7:18 PM) 1Result Comment: Charted by SYSTEM secondary to charting of Temperature Oral F on a Vitals Monitor. Rule: VITALSLINK_CALCULATIONS_2 2Result Comment: Charted by SYSTEM secondary to charting of Temperature Oral F on a Vitals Monitor. Rule: VITALSLINK_CALCULATIONS_2 3Result Comment: Charted by SYSTEM secondary to charting of Temperature Oral F on a Vitals Monitor. Rule: VITALSLINK_CALCULATIONS_2
[2023-11-27 12:16] LABS: Blood Urea Nitrogen 13 mg/dl (9-20); Estimated Glomerular Filt Rate 86 ml/min (>60); GFR (African American) 104 ML/MIN (>60)
[2023-11-27 12:56] LABS: Prostate Specific Ag Screen 10.2 ng/ml (0.0-4.0)
[2023-11-27 13:15] LABS: Microscopic, Urine URINE MICROSCOPIC (MICROSCOPIC)
[2023-11-27 13:52] LABS: Appearance,Urine CLEAR (Clear); Bilirubin,Urine Negative (Negative); Blood, Urine Negative (Negative); Color,Urine YELLOW (Yellow); Glucose,Urine (UA) Negative (Negative); Ketones,Urine Negative (Negative); Leukocyte Esterase,Urine Negative (Negative); Nitrate,Urine Negative (Negative); PH,Urine 6.5 (5.0-8.5); Protein,Urine Negative (Negative)
[2023-11-27 14:07] LABS: Squamous Epithelial Cell,Urine Occasional #/hpf (0-5); WBC,Urine Occasional #/hpf (0-3)
[2023-11-28 08:30] LABS: PSA, Free 0.98 ng/mL; Prostate Specific Ag 10.8 ng/mL (0.0-4.0)
== END 2023-11-27 23:59 | disposition home or self-care (01) ==
LOC: LAB 09:58
PROVIDERS: PCP Family Medicine; Visit Provider Urology
DX: N52.9 Male erectile dysfunction, unspecified (principal); N40.0 Benign prostatic hyperplasia without lower urinary tract symptoms; R97.20 Elevated prostate specific antigen [PSA]
CPT/HCPCS: 36415; 81001; 82565; 84153; 84154; 84520; G0103

== ENCOUNTER 2024-02-12 11:49 | Outpatient (CLI) | payer OTHER, SELFPAY ==
[2024-02-12 13:11] LABS: Blood Urea Nitrogen 9 mg/dl (9-20); Estimated Glomerular Filt Rate 115 ml/min (>60); GFR (African American) 139 ML/MIN (>60)
[2024-02-12 16:02] LABS: Microscopic, Urine URINE MICROSCOPIC (MICROSCOPIC)
[2024-02-12 20:04] LABS: Appearance,Urine CLEAR (Clear); Blood, Urine Negative (Negative); Color,Urine YELLOW (Yellow); Glucose,Urine (UA) Negative (Negative); Ketones,Urine Negative (Negative); Leukocyte Esterase,Urine Negative (Negative); Nitrate,Urine Negative (Negative); PH,Urine 6.5 (5.0-8.5); Protein,Urine Negative (Negative)
[2024-02-12 20:23] LABS: Bilirubin,Urine Negative (Negative)
[2024-02-12 20:48] LABS: Bacteria,Urine 1+ /lpf; Mucus,Urine 1+ /lpf
[2024-02-13 15:43] LABS: Prostate Specific Ag 9.1 ng/mL (0.0-4.0)
== END 2024-02-12 23:59 | disposition home or self-care (01) ==
LOC: LAB 11:50
PROVIDERS: PCP Family Medicine; Visit Provider Urology
DX: N40.0 Benign prostatic hyperplasia without lower urinary tract symptoms (principal); R97.20 Elevated prostate specific antigen [PSA]; N40.1 Benign prostatic hyperplasia with lower urinary tract symptoms
CPT/HCPCS: 36415; 81001; 82565; 84153; 84154; 84520; 87086

== ENCOUNTER 2025-02-04 12:55 | Outpatient (CLI) | payer MEDICARE, SELFPAY ==
--- NOTE | 2025-02-04 13:00 | CT_ITS ---
FINAL REPORT CLINICAL HISTORY: TOBACCO USE, current smoker, 2 packs per day for 45 yrs COMPARISON: 10/17/2023 FINDINGS: CT CHEST LOW DOSE SCREENING HISTORY: Screening exam for lung cancer. DOSE: CTDI vol: 2.90 mGy, DLP: 107.33 mGy*cm TECHNIQUE: Axial CT without IV contrast administration using low dose protocol. This study was performed with techniques to keep radiation doses as low as reasonably achievable, (ALARA). Individualized dose reduction techniques using automated exposure control or adjustment of mA and/or kV according to the patient's size were employed. No acute lung disease is present. No pulmonary lesions are seen suspicious for neoplasm. No pleural or pericardial effusion is seen. No adenopathy or mass lesion is present. Again identified is coronary artery plaque disease. There is a stable left hepatic lobe lesion, likely a cyst. IMPRESSION: No evidence of lung cancer LUNG RADS CATEGORY 1 RECOMMENDATION: 12 month LDCT follow up Reviewed, Interpreted and Dictated by Huseyin Alcantar MD Transcribed by Noemy Quevedo Authenticated and [facility]
== END 2025-02-04 23:59 | disposition home or self-care (01) ==
LOC: RAD 12:57
PROVIDERS: PCP Family Medicine; Visit Provider Family Medicine
DX: I25.10 Atherosclerotic heart disease of native coronary artery without angina pectoris (principal); K76.89 Other specified diseases of liver; Z87.891 Personal history of nicotine dependence
CPT/HCPCS: 71271